=== PATIENT | male | born 1995 | race Caucasian/White ===

== ENCOUNTER → 2016-09-22 | Day surgery (SDC) | payer BC ==
[2016-09-12 12:19] VITALS: Ht 176.5 cm; Wt 70.5 kg
[~2016-09-22] VITALS: Ht 176.5 cm; Wt 70.5 kg
[~2016-09-22] MED LIST: AMPH25CA PO; ATROPINE SULFATE 0.1 MG/ML 5ML SYR IV PRN; BUPIVACAINE/EPINEPHRINE 0.5% MPF 1:200,000 30 ML VIAL ONE; CEFAZOLIN 1000MG/55 ML D5W IV SCH; DEXAMETHASONE SOD INJ 4 MG/ML VIAL ONE; EpHEDrine SULFATE INJ 50 MG/ML AMP IV PRN; EpHEDrine SULFATE INJ 50 MG/ML AMP ONE; FENTANYL CITRATE INJ 50 MCG/1 ML 2 ML VIAL IV PRN; FENTANYL CITRATE INJ 50 MCG/1 ML 2 ML VIAL ONE; LACTATED RINGER'S 1000ML 1,000 ML IV SCH; LIDOCAINE HCL 1% 20 ML VIAL ONE; LIDOCAINE HCL 2% 2 ML VIAL (20MG/ML) ONE; MIDAZOLAM HCL 1 MG/ML 2ML VIAL ONE; MoRPHine SULFATE 2 MG/ML CARP IV PRN; MoRPHine SULFATE 4 MG/ML 1 ML CARP\\VIAL IV PRN; ONDANSETRON INJ 2 MG/ML 2 ML VIAL IV PRN; ONDANSETRON INJ 2 MG/ML 2 ML VIAL ONE; OXYCODONE/ACETAMINOPHEN 5-325 TAB PO PRN; PROPOFOL IV EMULSION 10 MG/ML 20 ML VIAL IV ONE; SODIUM CHLORIDE 0.9% INJ 10 ML VIAL ONE
--- NOTE | 2016-09-22 08:11 | History & Physical Bridge - [place] ---
H&P Re-Evaluation Bridge Note: I have examined the patient, reviewed the History & Physical and in the interval since the performance of the History & Physical I have noted the following changes of clinical significance: No changes noted
--- NOTE | 2016-09-22 10:09 | Discharge Instructions-SurgCtr ---
Discharge Instructions Visit Reason for Visit: Left Ankle Spur Discharge Discharge Diagnosis / Problem: Status post excision Talar bone spur left foot Discharge Goals Goal(s): Decrease discomfort, Improve function, Increase independence Activity Recommendations Exercise/Sports Limitations: until after follow-up appointment May Resume Sexual Activity: when tolerated Shower/Bathe: may shower/bathe in 3 days Driving or Machine Use: No driving Weightbearing Status: Left toe touch Anesthesia . Post Anesthesia Instructions: If you have had General Anesthesia or IV Sedation: * Do not drive today. * Resume driving when surgeon permits. * Do not make important decisions or sign legal documents today. * Call surgeon for: 1. Temperature elevations greater than 101 degrees F. 2. Uncontrollable pain. 3. Excessive bleeding. 4. Persistent nausea and vomiting. 5. Medication intolerance (nausea, vomiting or rash). * For nausea and vomiting use only clear liquids such as: tea, soda, bouillon until nausea subsides, then gradually increase diet as tolerated. * If you have any concerns or questions, call your surgeon's office. If physician is unavailable and it is an emergency, call 911 or go to the nearest emergency room. . Instructions / Follow-Up Instructions / Follow-Up Dr. Ibarra in 10-15 days. PT in 2-3 days. Diet Recommendations Home Diet: resume previous diet Procedures Procedures Performed: Left Ankle Spur Excision Pending Studies Studies pending at discharge: no Medical Emergencies . Who to Call and When: Medical Emergencies: If at any time you feel your situation is an emergency, please call 911 immediately. . Non-Emergent Contact Non-Emergency issues call your: Surgeon Call Non-Emergent contact if: temperature is above 101.5, your pain is not controlled, wound has increased drainage, wound has increased redness . . "Provider Documentation" section prepared by Daniel Ibarra.
--- NOTE | 2016-09-22 10:10 | [facility] Post Operative Brief Note ---
Immediate Operative Summary Operative Date Sep 22, 2016. Pre-Operative Diagnosis Spur left ankle, Talus Post-Operative Diagnosis same + synovitis ALF. Procedure(s) Performed Left Ankle Spur Excision Surgeon Dr Ibarra Installer Soft Top Surgeon(s) heidi cevallos pa-c Estimated Blood Loss 12ml Findings As above Specimens a spur left ankle,taylus and soft tissue Drains n/a Anesthesia LMA + ankle block Complication(s) None Disposition Recovery Room / PACU (Stable)
--- NOTE | 2016-09-22 10:13 | [facility] Operative Report ---
Operative Report Operative Date Sep 22, 2016. Pre-Operative Diagnosis Spur left ankle, Talus Post-Operative Diagnosis same + synovitis [facility]. Procedure(s) Performed Left Ankle Spur Excision Surgeon Dr Ibarra Department Chair Surgeon(s) heidi cevallos pa-c (No fellow avail) Estimated Blood Loss 12ml Findings Large bony spur Talus posterior to medial malleolus beneath the sheath for the [facility]CF. Some [facility] synovitis. Fluids (cc crystalloids) 700 Specimens a spur left ankle,taylus and soft tissue Drains n/a Anesthesia LMA + ankle block Complication(s) None Disposition Recovery Room / PACU (Stable) Implants n/a Indications This is a pleasant 21-year-old male who has been having long-standing left ankle pain that has failed conservative management. They have MRI, CT, and clinical findings suggestive of left Talar bony spur about the medial ankle. After a lengthy discussion regarding their options of conservative versus operative management, they have elected to proceed with surgery. The risks of surgery were discussed and include but not limited to: Infection, bleeding, nerve damage, continued pain, progression of arthritis, stiffness, decreased level of activity, re-occurrence, and deep vein thrombosis. The patient understood all of their options and the risks of surgery and would like to proceed. The informed consent was signed. Description of Procedure The patient was taken to the Operating Room and placed in the supine position on the operating table. After administration of general anesthetic was administered a multidisciplinary time-out was performed identifying my initials on the left lower limb as the correct and operative limb. Prior to the incision being made, 1 grams of intravenous Ancef was given. The left lower leg was prepped and draped in the standard sterile fashion. The Medial malleolus and planned posteromedial incision was marked. The incision was curved distally along the course of the posterior Tibialis tendon. The Posterior Tibialis and Flexor Digitorum Communis tendons were palpated between the posterior aspect of the medial malleolus and the bony protuberance of the Talar spur. A 5 cm incision was made through the skin. The Posterior tibialis and CHCF tendon sheaths were incised to expose the tendons, which both looked good. The CHCF had some synovitis within the sheath that was removed. The bony prominence was directly below the CHCF. The floor of the CHCF tendon sheath was incised and the Talar bony spur was freed of any soft tissue attachments and removed with combination of rongeur, freer, sheikh elevator, and osteotome. The FHL tendon was also exposed at this level and appeared normal. Fluoroscopy was brought in to ensure the Talar spur was removed. The edge of the Talus that had been removed was smoothed with a rasp. The bleeding surface was covered with bone was. The wound was copiously irrigated. The tendon sheaths were closed with 2-0 Vicryl. The retinaculum awas closed with 3-0 Vicryl. The skin was closed with 3 -0 nylon in horizontal mattress fashion. The wound was covered with Xeroform followed by 4x4's, ABD, sterile cast padding, and Sarkis. The patient was placed in a posterior splint. The sponge and needle counts were correct. Post-op Instructions: Pain medicine prescription was given pre-operatively to be taken as needed. The patient will follow up with me in 10-15 days. The patient will be Toe touch weight bearing. I attest to the content of the Intraoperative Record and any orders documented therein. Any exceptions are noted below.
--- NOTE | 2016-09-22 10:41 | [facility] Operative Report ---
Operative Report Operative Date Sep 22, 2016. Pre-Operative Diagnosis Spur left ankle, Talus Post-Operative Diagnosis same + synovitis [facility]. Procedure(s) Performed Left Ankle Spur Excision Surgeon Dr Ibarra Director Of Diagnostic Imaging Surgeon(s) heidi cevallos pa-c Estimated Blood Loss 12ml Findings same Fluids (cc crystalloids) 700 Specimens a spur left ankle,taylus and soft tissue Drains none Anesthesia general Complication(s) None Disposition Recovery Room / PACU Implants none Indications continued pain left ankle, surgery recommended, failed PT, consents signed. Description of Procedure taken to the OR, prepped and draped, I was present the entire case, please see Dr. Ibarra's op note for further detail. I attest to the content of the Intraoperative Record and any orders documented therein. Any exceptions are noted below.
[2016-09-22 11:18] VITALS: TEMP 36.4
[2016-09-22 11:39] VITALS: BP 124/63; PULSE 77; O2SAT 99
--- NOTE | 2016-09-22 11:52 | Anesthesia Progress Nt - [facility] ---
Anesthesia Post Op Note Date & Time Sep 22, 2016 at 11:51 Vital Signs Pain Intensity: 0 Vital Signs Past 12 Hours Date Time Temp Pulse Resp B/P Pulse Ox O2 Delivery O2 Flow Rate FiO2 09/22/16 11:39 77 16 124/63 99 Room Air 09/22/16 11:18 36.4 67 16 128/71 99 Room Air 09/22/16 11:08 64 15 125/76 100 09/22/16 11:08 62 15 100 09/22/16 11:06 36.4 09/22/16 11:03 60 16 120/67 100 09/22/16 11:03 62 16 09/22/16 10:58 60 13 09/22/16 10:58 60 13 123/62 100 09/22/16 10:54 124/61 09/22/16 10:53 81 21 09/22/16 10:53 84 21 100 09/22/16 10:48 63 19 09/22/16 10:48 63 19 127/69 100 09/22/16 10:43 63 7 123/62 100 09/22/16 10:43 63 7 09/22/16 10:38 74 12 124/62 100 09/22/16 10:38 72 12 09/22/16 10:33 69 12 09/22/16 10:33 67 12 122/51 100 09/22/16 10:28 36.4 72 16 131/77 99 Diffusion Mask 6 09/22/16 10:28 80 19 09/22/16 10:28 80 19 127/63 99 09/22/16 07:41 36.5 77 18 123/75 97 Room Air Notes Mental Status: alert / awake / arousable, participated in evaluation Pt Amnestic to Procedure: Yes Nausea / Vomiting: adequately controlled Pain: adequately controlled Airway Patency, RR, SpO2: stable & adequate BP & HR: stable & adequate Hydration State: stable & adequate Anesthetic Complications: no major complications apparent
== END | disposition home or self-care (01) ==
LOC: X.SURG 07:30
PROVIDERS: ATTEND Orthopaedic Surgery Sports Medicine
DX: M76.892 Other specified enthesopathies of left lower limb, excluding foot (principal); M65.872 Other synovitis and tenosynovitis, left ankle and foot; Z91.013 Allergy to seafood; F98.8 Other specified behavioral and emotional disorders with onset usually occurring in childhood and adolescence; Z68.22 Body mass index [BMI] 22.0-22.9, adult